=== PATIENT | female | born 1970 | race Asian ===

== ENCOUNTER 2020-12-01 00:42 | Emergency (ER) | payer OTHER ==
[~2020-12-01] VITALS: Ht 160 cm; Wt 113.4 kg
[2020-12-01 01:47] LABS: PLATELET COUNT 246 K/uL (152-353)
[2020-12-01 01:50] LABS: POTASSIUM 3.7 mmol/L (3.6-5.2)
[2020-12-01] MEDS ORDERED: SPIR100T7 PO (01:54)
[2020-12-01] MEDS ORDERED: METFORMIN500 MG/5 M PO (01:54)
[2020-12-01] MEDS ORDERED: LISI20TA11 PO (01:54)
[2020-12-01 02:35] VITALS: BP 137/88; TEMP 98.4
== END 2020-12-01 02:35 | disposition home or self-care (01) ==
LOC: ED 00:42
PROVIDERS: Hospitalist
DX: U07.1 COVID-19 (principal); J06.9 Acute upper respiratory infection, unspecified; R11.2 Nausea with vomiting, unspecified
CPT/HCPCS: 36415; 80048; 85008; 85027; 96360; 96374; 96375; 99284; J1100; J1885; J2405

== ENCOUNTER 2021-09-01 11:26 | Outpatient (CLI) | payer OTHER ==
[~2021-09-01 11:26] MED LIST: LISI20TA11 PO; METFORMIN500 MG/5 M PO; SPIR100T7 PO
== END 2021-09-01 19:23 | disposition home or self-care (01) ==
LOC: US 11:26
PROVIDERS: ATTEND Family Medicine
DX: L02.91 Cutaneous abscess, unspecified (principal)

== ENCOUNTER 2022-05-27 20:20 | Emergency (ER) | payer OTHER ==
[~2022-05-27] VITALS: Ht 160 cm; Wt 113.4 kg
[2022-05-27] MEDS ORDERED: Z-PAK PO (22:38)
[2022-05-27] MEDS ORDERED: MEDROL DOSEPAK4 MG PO (22:38)
[2022-05-27 23:05] VITALS: BP 155/74; TEMP 98.5
== END 2022-05-27 23:10 | disposition home or self-care (01) ==
LOC: ED 20:20
DX: B34.9 Viral infection, unspecified (principal); U07.1 COVID-19
CPT/HCPCS: 87502; 87635; 87651; 96372; 99283; J0696; J1100; U0003

== ENCOUNTER 2022-10-06 13:45 | Observation (INO) | payer OTHER ==
[~2022-10-06] VITALS: Ht 160 cm; Wt 125.0 kg
[~2022-10-06 13:45] MED LIST changes: +LISITAB PO; +MEDROL DOSEPAK4 MG PO; -METFORMIN500 MG/5 M PO; +Z-PAK PO
[2022-10-06 14:09] LABS: PLATELET COUNT 183 K/uL (152-353)
[2022-10-06 14:30] LABS: POTASSIUM 3.9 mmol/L (3.6-5.2)
[2022-10-06 19:56] VITALS: BP 172/97; TEMP 98.4
[2022-10-06 23:14] VITALS: BP 158/92; TEMP 98.3; Ht 160 cm; Wt 125.0 kg
[2022-10-07] VITALS (7 sets, daily range): BP systolic 122–144; BP diastolic 55–90; TEMP 97.9–99
[2022-10-07 04:51] LABS: POTASSIUM 3.4 mmol/L (3.6-5.2)
[2022-10-07] MEDS ORDERED: METF500T PO (10:45)
[2022-10-07] MEDS ORDERED: ASPIRIN 8181 MG PO (10:46)
[2022-10-07] MEDS ORDERED: RYBELSUS7 MG PO (10:46)
[2022-10-08 03:43] VITALS: BP 142/86; TEMP 98.1
[2022-10-08 08:00] VITALS: BP 146/93; TEMP 98.2
[2022-10-08 12:00] VITALS: BP 149/91; TEMP 98.9
[2022-10-08] MEDS ORDERED: FLUC150T PO (12:37)
[2022-10-08] MEDS ORDERED: INSU100P SC (12:37)
[2022-10-08] MEDS ORDERED: INSU300I SC (12:38)
[2022-10-08] MEDS ORDERED: LISI20TA11 PO (12:39)
[2022-10-08] MEDS ORDERED: METO-837 PO (12:40)
== END 2022-10-08 15:10 | disposition home or self-care (01) ==
LOC: LABW 13:45 → MED/SURG 16:40
PROVIDERS: Nurse Practitioner Family; ADMIT Internal Medicine; ATTEND Internal Medicine
DX: E11.65 Type 2 diabetes mellitus with hyperglycemia (principal); Z79.4 Long term (current) use of insulin; I10 Essential (primary) hypertension; B37.49 Other urogenital candidiasis; Z11.52 Encounter for screening for COVID-19
CPT/HCPCS: 36415; 80053; 82550; 82553; 82805; 82947; 82948; 84484; 85027; 87635; 96360; 96361; 96372; 99220; G0378; J1815; U0003

== ENCOUNTER 2023-05-30 09:54 | Outpatient (CLI) | payer OTHER ==
[~2023-05-30 09:54] MED LIST changes: +ASPIRIN 8181 MG PO; +FLUC150T PO; +INSU100P SC; +INSU300I SC; +METF500T PO; +METO-837 PO; +RYBELSUS7 MG PO
== END 2023-05-30 19:08 | disposition home or self-care (01) ==
LOC: RAD 09:54
PROVIDERS: ATTEND Nurse Practitioner Family
DX: M54.17 Radiculopathy, lumbosacral region (principal)